=== PATIENT | female | born 1990 | race Caucasian/White ===

== ENCOUNTER 2018-11-19 19:58 | Emergency (ER) | payer SELFPAY ==
[2018-11-19 20:04] VITALS: BP 140/75
--- NOTE | 2018-11-19 20:26 | UC ---
Cardiac HPI - HPI Summary HPI Summary: Patient is a 28 year old female , who present today to the urgent care with chest pain for 4 days intermittently. Reports that pain is substernal and radiates to the back, comes on intermittently and last for about 15 minutes at a time.There is associated nausea. She denies any recent viral illness or any high impact activity that could have left to any chest discomfort. There is associated shortness of breath. She was seen at an Urgent care in [place] for same complaint, was diagnosed with acid reflux, taking tums with no relief Denies any No sick contacts . No skin rash. Denies any fever, chills or cough. No diarrhea or constipation - History of Current Complaint Chief Complaint: UCChestPain Stated Complaint: CHEST PRESSURE Time Seen by Provider: 11/19/18 20:02 Hx Obtained From: Patient Hx Last Menstrual Period: 11/03/18 Pain Intensity: 5 - Allergy/Home Medications Allergies/Adverse Reactions: Allergies Allergy/AdvReac Type Severity Reaction Status Date / Time No Known Allergies Allergy Verified 11/19/18 20:04 Home Medications: Home Medications Calcium Carbonate CHEW TAB* [Tums*] 500 mg PO BID 11/19/18 [History Confirmed ] Naproxen Sodium [Aleve] 220 mg PO DAILY 11/19/18 [History Confirmed 11/19/18] PMH/Surg Hx/FS Hx/Imm Hx - Additional Past Medical History Additional PMH: No significant past medical history IUD placement Previously Healthy: Yes - Surgical History Surgical History: None - Social History Alcohol Use: None Substance Use Type: None Smoking Status (MU): Never Smoked Tobacco Review of Systems All Other Systems Reviewed And Are Negative: Yes Constitutional: Positive: Negative Skin: Positive: Negative Eyes: Positive: Negative ENT: Positive: Negative Respiratory: Positive: Shortness Of Breath. Negative: Cough Cardiovascular: Positive: Chest Pain Gastrointestinal: Positive: Negative Genitourinary: Positive: Negative Motor: Positive: Negative Neurovascular: Positive: Negative Musculoskeletal: Positive: Negative Neurological: Positive: Negative Psychological: Positive: Negative Is Patient Immunocompromised?: No Physical Exam - Summary Physical Exam Summary: Physical Exam: Const: Appears well. No signs of apparent distress present. Alert and oriented x 3. Musculo: Walks with a normal gait. Head/Face: Atraumatic, normocephalic on inspection. Eyes: EOMI and PERRLA in both eyes. Conjunctivae clear. No discharge noted ENT: Hearing normal, TM normal appearing bilaterally . Respiratory: Respirations are unlabored. Lungs clear to auscultation bilaterally, no wheezing , rhonchi or rales noted . CVS: Regular rate and Rhythm, S1S2 normal , no murmurs identified. Extremities: Peripheral circulation is grossly normal. Pulses 2+ Abdomen : Soft non tender , nondistended , Bowel sounds present . No guarding , rebound tenderness or rigidity noted. Skin: No lesions or rash located on the upper extremities or on the lower extremities. Neuro: Cranial nerves II to XII intact, motor and sensory intact. DTR Intact bilaterally. Mood is normal. Affect is normal. Triage Information Reviewed: Yes Vital Signs: Initial Vital Signs Temp 98.0 F 11/19/18 20:00 Pulse 81 11/19/18 20:00 Resp 18 11/19/18 20:00 BP 140/75 11/19/18 20:00 Pulse Ox 100 11/19/18 20:00 Vital Signs Reviewed: Yes Diagnostics - EKG Cardiac Rate: NL Cardiac Rhythm: Sinus: Normal Ectopy: None Summary of EKG Findings: Normal sinus rhythm, normal MN and QRS interval, normal axis. No ST elevation. ST depression noted in V2, V4 and V5. T-wave inversions are noted in V1 to V3 with flattening of T waves in V4 to V6. No hypertrophy noted - Assessment/Plan Course Of Treatment: During the visit today, we obtained EKG which demonstrated T-wave inversions and ST segment depressions . I advised transfer her to ER via ambulance but patient declined and want to go in private car. I believe that the patient's symptoms are cardiac related . I discussed this at length with her and her present. Risk includes . He verbalizes understanding of potential diagnosis and risks. I strongly advised her to be transferred via ambulance to ER and further evaluation and treatment there. They refused to go to the ED via ambulance but will go in private car. Patient signed out AMA. Report called to the ER provider( ) at [facility] , advised provider of the history, physical examination , and duration of illness and ekg findings so far and the need for definitive management. - Differential Diagnoses - Chest Pain Differential Diagnosis/HQI/PQRI: ACS, Angina - Clinical Impression Provider Diagnosis: Angina at rest Discharge - Sign-Out/Discharge Documenting (check all that apply): Patient Departure All imaging exams completed and their final reports reviewed: No Studies - Discharge Plan Condition: Stable Disposition: AGAINST MEDICAL ADVICE Referrals: No Primary Care Phys,NOPCP [Primary Care Provider] - Additional Instructions: Patient needs additional testing, thus ER transfer advised via ambulance. Patient prefers to go via private car, signed out AMA. Report called to the ER provider( ) at [facility]. Advised provider of the history, physical examination, and duration of illness and ekg findings so far and the need for definitive management. - Billing Disposition and Condition Condition: STABLE Disposition: Against Medical Advice
== END 2018-11-19 20:16 | disposition left against medical advice (07) ==
LOC: UCCORT 19:58
DX: I20.9 Angina pectoris, unspecified (principal)
CPT/HCPCS: 93005; 99202; G0463